=== PATIENT | male | born 1960 | race Caucasian/White ===

== ENCOUNTER 2016-10-15 08:22 | Day surgery (SDC) | payer BC ==
[2016-10-15] MEDS ORDERED: PROPOFOL 10 MG/ML VIAL IV ONE (14:00)
[2016-10-15] MEDS ORDERED: MIDAZOLAM HCL 2MG/2ML VIAL IV ONE (14:00)
[2016-10-15] MEDS ORDERED: LIDOCAINE 2% MDV (20MG/ML) 20ML VIAL IV ONE (14:00)
--- NOTE | 2016-10-21 16:10 | Operative Note ---
DATE OF SURGERY: 10/15/2016 OPERATION: COLONOSCOPY with cold snare polypectomy. PREOPERATIVE DIAGNOSIS: Personal history of colon polyps and family history of colon cancer. POSTOPERATIVE DIAGNOSES: 1. Sigmoid diverticulosis. 2. Ascending colon polyp. PROCEDURE: After informed consent was obtained from the patient, he was placed in the left lateral decubitus position in the endoscopy suite, sedated and monitored by the department of anesthesia. Digital rectal examination was unremarkable. A well-lubricated [id number] colonoscope was inserted into the rectum and advanced to the cecum. Preparation quality was good to excellent. The ileocecal valve, appendiceal orifice, and cecum were unremarkable. In the ascending colon there was a 6 mm polyp removed with a cold snare. This polyp appeared semi-pedunculated. Minimal bleeding was noted at the site. The polyp was retrieved without incident. The remainder of the ascending colon, transverse colon, and descending colon were unremarkable. The sigmoid colon revealed [id number] diverticular changes. No polyps were seen in the sigmoid colon. The rectum was unremarkable in forward and in J-turn views. The endoscope was straightened, the rectal ampulla deflated, and the endoscope was removed. RECOMMENDATIONS: The patient should follow a high-fiber diet. He will require repeat exam in 3-5 years pending tissue histology. As always, thank you for allowing me to participate in the healthcare of your patients. CC: HIRAM BERTRAND MD, FACP [facility]
== END 2016-10-15 09:32 | disposition home or self-care (01) ==
LOC: HOP 08:22
PROVIDERS: ATTEND Internal Medicine Gastroenterology
DX: Z12.11 Encounter for screening for malignant neoplasm of colon (principal); Z86.010 Personal history of colon polyps; D12.2 Benign neoplasm of ascending colon; E78.00 Pure hypercholesterolemia, unspecified